=== PATIENT | male | born 1950 | race Caucasian/White ===

== ENCOUNTER 2016-12-08 05:36 | Outpatient (CLI) | payer BC ==
[~2016-12-08] VITALS: Ht 175.3 cm; Wt 83.5 kg
[2016-12-08] MEDS ORDERED: LISI10TA2 PO (12:41)
[2016-12-08] MEDS ORDERED: OMEG1600 PO (12:41)
[2016-12-08] MEDS ORDERED: ASPI-808 PO (12:41)
[2016-12-08] MEDS ORDERED: MULT-35 PO (12:41)
== END 2016-12-08 12:59 ==
LOC: PREOP 05:36
PROVIDERS: ATTEND Internal Medicine
DX: Z01.818 Encounter for other preprocedural examination (principal); Z12.11 Encounter for screening for malignant neoplasm of colon

== ENCOUNTER 2016-12-11 07:40 | Day surgery (SDC) | payer BC ==
--- NOTE | 2016-11-30 09:54 | HISTORY AND PHYSICAL ---
DATE OF SERVICE: DATE OF ADMISSION: 11/25/2016. HISTORY OF PRESENT ILLNESS: The patient is a 66-year-old white male who presented to my office on the 11/25/2016 for yearly wellness evaluation. He reports that generally he has been feeling well. He continues to exercise predominantly running but has not been quite as active over the past month. He typically has target goals of 5 and 10 Ks as well as a half marathons, it has been a little while since his last race. He has been 10 years since his last colonoscopy, which was unremarkable. He was simply started for repeat screening colonoscopy. PAST MEDICAL HISTORY: Significant for hypertension and Peyronie's disease, which has been stable. He has not been having any sexual difficulties. PAST SURGICAL HISTORY: Noncontributory. FAMILY HISTORY: He is not aware of any family history for colon cancer or polyps. PHYSICAL EXAMINATION: GENERAL: Reveals a well appearing, normal weight white male in no acute distress. VITAL SIGNS: Weight was up 5 pounds at 184, but he is still on the normal weight range, blood pressure 120/76, heart rate 72 and regular. HEENT: Revealed this atraumatic, normocephalic white male. Sclerae nonicteric. Oral cavity is clear with a Mallampati 2 oropharyngeal configuration. NECK: Revealed no JVD, adenopathy or bruits. CHEST: Clear. CARDIOVASCULAR: Regular rate and rhythm without murmur, S3 or S4. ABDOMEN: Soft, supple without mass, organomegaly or tenderness. Rectal examination was deferred at the time of colonoscopy. SKIN EVALUATION: Revealed no suspicious nevi. UA revealed an unremarkable dipstick, nonspecific sediment was noted without cast, cells or bacteria. Blood tests including chemistry panel, CBC and testosterone level were unremarkable. ASSESSMENT: 1. Normal well male examination with well controlled hypertension on lisinopril 10 mg daily, we will continue. 2. The patient was set up for a second screening colonoscopy on 12/11/2016. Prior instructions with Suprep kit were given and questions were answered. The patient was scheduled for return visit in six months and received influenza vaccination today. Job ID: [id number] DocumentID: [id number] Dictated Date: 11/25/2016 21:07:18 Dairy Farm Worker Date: 11/25/2016 22:33:51 Dictated By: YAMILE DAVIS MD
[~2016-12-11] VITALS: Ht 175.3 cm; Wt 83.5 kg
[~2016-12-11 07:40] MED LIST: ASPI-808 PO; LISI10TA2 PO; MULT-35 PO; OMEG1600 PO
[2016-12-11] MEDS ORDERED: 1/2 NS IV SOLUTION 1,000 ML IV STA (07:43)
[2016-12-11] MEDS ORDERED: LIDOCAINE JELLY 2% (XYLOCAINE) 5 ML TUBE MM PRN (07:45)
--- NOTE | 2016-12-11 07:47 | Pre-Op Note & Conscious Sedat ---
Pre-Operative Progress Note H&P Reviewed The H&P was reviewed, patient examined and no changes noted. Date H&P Reviewed: Dec 11, 2016 Time H&P Reviewed: 07:47 Conscious Sedation Pre-Proced ASA Class: 2 Airway Mallampati Classification: (nez perce appropriate class) I. II. III, IV Lungs Heart ASA score ASA 1: a normal healthy patient ASA 2: a patient with a mild systemic disease (mid diabetes, controlled hypertension, obesity ASA 3: a patient with a severe systemic disease that limits activity (angina , COPD, prior Myocardial infarction) ASA 4: a patient with an incapacitating disease that is a constant threat to life (CHF, renal failure) ASA 5: a moribund patient not expected to survive 24 hrs. (ruptured aneurysm) ASA 6: a declared brain patient whose organs are being harvested. For emergent operations, add the letter E after the classification Grade 2 Sedation Plan: Analgesia, Amnesia, Plan communicated to team members, Discussed options with patient/fam, Discussed risks with patient/fam Note The patient is an appropriate candidate to undergo the planned procedure, sedation, and anesthesia. The patient immediately re-assessed prior to indication. YAMILE DAVIS MD Dec 11, 2016 07:47
[2016-12-11 07:52] VITALS: BP 146/93
[2016-12-11 09:30] VITALS: BP 146/87
[2016-12-11 09:40] VITALS: BP 146/87
--- NOTE | 2016-12-11 22:47 | OPERATIVE REPORT ---
DATE OF SERVICE: COLONOSCOPY SUMMARY INDICATION FOR PROCEDURE: The patient was scheduled for screening colonoscopy. INTERVAL HISTORY: His brother at the age of 68, just recently was diagnosed with colon cancer. He is not aware of any other family history of colon cancer. DESCRIPTION OF PROCEDURE: The patient was placed in left lateral decubitus position. Prior to undergoing colonoscopy, a digital rectal evaluation was performed. Anal sphincter tone was normal and the perianal reflex is intact. Prostate is moderately enlarged, anodular nontender digital inspection. No other abnormalities are noted on digital inspection of anal canal or distal rectal vault. The colonoscope was then inserted into the rectum and under direct visualization, advanced to the cecum. The cecum was identified by identification of the ileocecal valve and cecal strap. Photographic documentation was obtained. Careful inspection was made as the colonoscope was withdrawn. FINDINGS: One small grade 1 internal hemorrhoid was noted with no other anal canal abnormalities being appreciated. The rectum, sigmoid colon, descending colon, splenic flexure, transverse colon and hepatic flexure were unremarkable. No diverticulum were noted. Present in the proximal ascending colon was diminutive sessile 3 x 4 mm polyp that was biopsied and ablated and submitted for histopathology after photographic documentation. There was no subsequent blood loss. Remainder of the ascending colon and cecum were unremarkable. ASSESSMENT: One diminutive polyp was removed from the proximal ascending colon. As long as there are no surprises on histopathology report considering family history of colon cancer in a first-degree relative, in this case being his brother just diagnosed at the age of 68, we will advocate likely a 3-5 year surveillance interval. Moderate BPH was noted and 1 small internal hemorrhoid grade 1 was present. Job ID: [id number] DocumentID: [id number] Dictated Date: 12/11/2016 10:01:17 Flat Hammerer Date: 12/11/2016 20:24:36 Dictated By: YAMILE DAVIS MD
== END 2016-12-11 09:40 | disposition home or self-care (01) ==
LOC: ENDO 07:40
PROVIDERS: ATTEND Internal Medicine
DX: Z12.11 Encounter for screening for malignant neoplasm of colon (principal); D12.2 Benign neoplasm of ascending colon; K64.0 First degree hemorrhoids; N40.0 Benign prostatic hyperplasia without lower urinary tract symptoms; Z80.0 Family history of malignant neoplasm of digestive organs; I10 Essential (primary) hypertension; N48.6 Induration penis plastica; Z79.899 Other long term (current) drug therapy

== ENCOUNTER 2021-04-21 05:38 | Outpatient (RCR) | payer MEDICARE ==
[~2021-04-21 05:38] MED LIST changes: -LISI10TA2 PO; +LISI10TA25 PO
== END 2021-05-15 | disposition home or self-care (01) ==
LOC: PREOP 05:38
PROVIDERS: ATTEND Internal Medicine
DX: Z01.818 Encounter for other preprocedural examination (principal)

== ENCOUNTER 2021-06-05 05:40 | Outpatient (RCR) | payer MEDICARE ==
[~2021-06-05] VITALS: Ht 175.3 cm; Wt 71.7 kg
== END 2021-06-05 12:13 | disposition home or self-care (01) ==
LOC: PREOP 05:40
PROVIDERS: ATTEND Internal Medicine
DX: Z01.818 Encounter for other preprocedural examination (principal)

== ENCOUNTER 2021-06-13 08:22 | Day surgery (SDC) | payer MEDICARE, OTHER ==
--- NOTE | 2021-04-24 04:41 | HISTORY AND PHYSICAL ---
DATE OF SERVICE: EGD HISTORY AND PHYSICAL The patient was seen for followup hypertension and elevated cholesterol. He had also had LDL particle number studies done, which were elevated. He has no known history of heart disease, does have history of hypertension. He reports that he has felt well, but mentioned for the first time that for several years, he has had a history of dysphagia to solids. It is intermittent, but he does have to regurgitate food at times if he is not careful about how he chews it. He does not take any acid blocking medication. Denies any symptoms that sound compatible with heartburn. He has not experienced any reported change in weights and this was confirmed by our scales were he weighed 161 pounds compared to 162.8 pounds 5-1/2 months ago. He has noted no melena or bright red blood per rectum. He has not had previous EGD evaluation. PHYSICAL EXAMINATION: GENERAL: Reveals an anxious white male, appeared to be in no acute distress. VITAL SIGNS: Blood pressure initially 156/94 at the end of the interview 130/88. HEENT: Unremarkable. CHEST: Clear. CARDIOVASCULAR: Reveals a regular rate and rhythm without murmur, S3 or S4. ABDOMEN: Soft, supple without mass, organomegaly or tenderness. EXTREMITIES: Reveal no cyanosis, clubbing or edema. ASSESSMENT AND PLAN: 1. The patient is being set up for diagnostic EGD due to history of dysphagia. Discussed the potential for stricturing and that concerns for potential dilatation should this be found would be part of the procedure. The patient voices understanding and willing to proceed. 2. Hyperlipidemia with increased LDL particle number and history of hypertension, male sex, I advised that he was a strong candidate for statin therapy to prevent vascular disease and this was recommended. The patient states that his has many negative feelings about statins and that he would like to try getting back to running, portion controlling and repeat the studies in 6 months. Refusing statin therapy at this time. We will see him back in 6 months with followup blood tests. 3. Hypertension with white coat components, a good blood pressure control on home numbers. No changes recommended. Job ID: [id number] DocumentID: [id number] Dictated Date: 04/16/2021 16:43:48 Environmental Monitoring Specialist Date: 04/16/2021 20:31:55 Dictated By: YAMILE DAVIS MD [facility]
--- NOTE | 2021-05-27 08:55 | HISTORY AND PHYSICAL ---
DATE OF SERVICE: ADDENDUM Addendum to colonoscopy history and physical. The patient had to reschedule colonoscopy/it was more than a month since I originally saw him, he reports no change in his health history. He is being set up for screening procedure. He has no history of coronary artery disease, does have a history of well-controlled hypertension. PHYSICAL EXAMINATION: GENERAL: Reveals a white male, appeared to be in no acute distress. VITAL SIGNS: Blood pressure 120/82. CHEST: Clear. CARDIOVASCULAR: Reveals regular rate and rhythm without murmur, S3 or S4. ASSESSMENT: No contraindications to proceeding with planned colonoscopy rescheduled for 06/13/2021. The patient already had prep instructions for the Suprep kit. Job ID: [id number] DocumentID: [id number] Dictated Date: 05/26/2021 11:46:37 Cloth Dyeing Range Tender Date: 05/26/2021 12:04:32 Dictated By: YAMILE DAVIS MD
[~2021-06-13] VITALS: Ht 175.3 cm; Wt 71.7 kg
[2021-06-13] MEDS ORDERED: LACTATED RINGERS 1,000 ML IV ONE (08:25)
[2021-06-13] MEDS ORDERED: LACTATED RINGERS 1,000 ML IV STA (08:28)
[2021-06-13] MEDS ORDERED: HURRICAINE EXT TUBE (BENZOCAINE) XX PRN (08:30)
[2021-06-13 09:01] VITALS: BP 148/99
[2021-06-13] MEDS ORDERED: MIDAZOLAM 2 MG/2 ML (VERSED) VIAL ONE (09:04)
[2021-06-13] MEDS ORDERED: proPOfol 200 MG/20 ML (DIPRIVAN) VIAL IV ONE (09:04)
[2021-06-13] MEDS ORDERED: LIDOCAINE JELLY 2% 6 ML SYRINGE ONE (09:05)
--- NOTE | 2021-06-13 09:14 | Pre-Op Note & Conscious Sedat ---
Pre-Operative Progress Note H&P Reviewed The H&P was reviewed, patient examined and no changes noted. Date H&P Reviewed: Jun 13, 2021 Time H&P Reviewed: 08:30 Conscious Sedation Pre-Proced ASA Score 2 For ASA 3 and 4: Consider anesthesia and medical clearance. Also, for patients with a history of failed moderate sedation consider anesthesia. Airway Lungs Heart ASA score ASA 1: a normal healthy patient ASA 2: a patient with a mild systemic disease (mid diabetes, controlled hypertension, obesity ASA 3: a patient with a severe systemic disease that limits activity (angina, COPD, prior Myocardial infarction) ASA 4: a patient with an incapacitating disease that is a constant threat to life (CHF, renal failure) ASA 5: a moribund patient not expected to survive 24 hrs. (ruptured aneurysm) ASA 6: a declared brain- patient whose organs are being harvested. For emergent operations, add the letter E after the classification Mallampati Classification Grade 2 Sedation Plan Analgesia, Amnesia, Plan communicated to team members, Discussed options with patient/fam, Discussed risks with patient/fam The patient is an appropriate candidate to undergo the planned procedure, sedation, and anesthesia. The patient immediately re-assessed prior to indication. YAMILE DAVIS MD Jun 13, 2021 09:14
[2021-06-13] MEDS ORDERED: LIDOCAINE JELLY 2% 6 ML SYRINGE TOP ONE (09:15)
[2021-06-13 10:00] VITALS: BP 107/78
[2021-06-13 10:05] VITALS: BP 109/77
--- NOTE | 2021-06-13 10:14 | Anesthesia-General Post-Op ---
MAC Patient Condition Mental Status/LOC: Same as Preop Cardiovascular: Satisfactory Nausea/Vomiting: Absent Respiratory: Satisfactory Pain: Controlled Complications: Absent Post Op Complications Complications None Follow Up Care/Instructions Patient Instructions None needed. Anesthesiology Discharge Order Discharge Order Patient is doing well, no complaints, stable vital signs, no apparent adverse anesthesia problems. No complications reported per nursing. TIA POLANCO DIRECTOR FUNDRAISING Jun 13, 2021 10:14
[2021-06-13 10:25] VITALS: BP 118/84
[2021-06-13 10:28] VITALS: BP 118/84
--- NOTE | 2021-06-13 13:51 | OPERATIVE REPORT ---
DATE OF SERVICE: PANENDOSCOPY SUMMARY INDICATION FOR THE PROCEDURE: EGD is performed for evaluation of dysphagia, colonoscopy was performed for screening purposes. DESCRIPTION OF PROCEDURE: The patient was placed in the left lateral decubitus position. The endoscope was inserted in the oral cavity and under direct visualization, esophagus was intubated. The endoscope was passed down the esophagus, stomach and second portion of the duodenum. Careful inspection was made as the endoscope was withdrawn. FINDINGS: The posterior pharynx, epiglottis, true and false vocal folds and arytenoid aperture were unremarkable. Present just below the upper esophageal sphincter was findings compatible with a Zenker's diverticulum, small in size, but the likely cause of this patient's dysphagia. There was no evidence for ulceration or erythema. Photograph was obtained. Otherwise, the proximal, mid and distal esophagus were unremarkable. No evidence for hiatal hernia formation was noted. No evidence for erosive esophagitis or Coppola's change was present. One biopsy was obtained in the mid esophagus for evaluation of eosinophilic esophagitis. The cardia, fundus, antrum, pylorus, pyloric channel, duodenal bulb and second portion of the duodenum were unremarkable to gross inspection. ASSESSMENT: Findings compatible with a Zenker's diverticulum, small as noted above were present with an otherwise unremarkable appearing EGD. This is the most likely cause of this patient's dysphagia. We then proceeded with colonoscopy. Prior to undergoing colonoscopy, digital rectal evaluation was performed. Anal sphincter tone was normal. Perianal reflexes intact. No abnormalities were noted on digital inspection in the distal rectal vault. Prostate is mildly enlarged and anodular on digital inspection. The colonoscope was then inserted into the rectum and under direct visualization advanced to the cecum. The cecum was identified by identification of ileocecal valve and cecal strap. Photographic documentation was obtained. Careful inspection was made as the endoscope was withdrawn. Quality of prep was good. FINDINGS: There was no evidence for internal or external hemorrhoids and the rectum was unremarkable. The sigmoid colon, descending colon, and splenic flexure were unremarkable. No evidence for diverticular disease was noted. Present in the proximal transverse colon was a 2 mm sessile polyp was biopsied and ablated and submitted for histopathology. Present in the distal ascending colon was another 3 mm sessile polyp, it was biopsied and ablated. A similar 3 to 4 mm sessile polyp was noted in the proximal ascending colon adjacent to the ileocecal valve. It was biopsied and ablated again with no evidence for blood loss. ASSESSMENT: Three diminutive sessile right-sided colonic polyps were present as noted above and all were biopsied and ablated with no subsequent blood loss. This is an otherwise normal colonoscopy to cecum. As long as there are no surprise on histopathology report, would advocate consideration for repeat screening colonoscopy in 10 years. Job ID: [id number] DocumentID: [id number] Dictated Date: 06/13/2021 10:05:31 Body Presser Date: 06/13/2021 13:50:22 Dictated By: YAMILE DAVIS MD
== END 2021-06-13 10:55 | disposition home or self-care (01) ==
LOC: ENDO 08:22
PROVIDERS: ATTEND Internal Medicine
DX: Z12.11 Encounter for screening for malignant neoplasm of colon (principal); D12.2 Benign neoplasm of ascending colon; D12.3 Benign neoplasm of transverse colon; K63.5 Polyp of colon; K20.90 Esophagitis, unspecified without bleeding; E78.5 Hyperlipidemia, unspecified; I10 Essential (primary) hypertension; Z79.899 Other long term (current) drug therapy
CPT/HCPCS: 88305